=== PATIENT | female | born 1990 | race African-American/Black ===

== ENCOUNTER 2024-12-30 13:33 | Emergency (ER) | payer SELFPAY ==
[~2024-12-30] VITALS: Ht 172.7 cm; Wt 69.0 kg
[2024-12-30 13:42] VITALS: O2SAT 97
[2024-12-30 14:55] LABS: BASOPHILS % 0.5 % (0.0-2.0); EOSINOPHILS % 1.1 % (0.0-5.0); HEMATOCRIT. 38.1 % (36.0-48.0); HEMOGLOBIN. 12.6 g/dL (12.0-16.0); LYMPHOCYTES % 20.3 % (20.0-50.0); MEAN PLATELET VOLUME 7.3 fl (7.4-10.4); MONOCYTES % 6.0 % (2.0-8.0); NEUTROPHILS % 72.1 % (40.0-76.0); PLATELET 214 x1000/uL (130-400); RED BLOOD CELL COUNT 4.28 mill/uL (4.2-5.4); RED CELL DISTRIBUTION WIDTH 14.0 % (11.6-14.6)
[2024-12-30 15:12] LABS: CREATININE 0.9 mg/dL (0.6-1.0); ETHANOL BLOOD < 10 mg/dL (<10); UREA NITROGEN BLOOD 12 mg/dL (9-23)
[2024-12-30 17:57] LABS: HCG SCREEN NEGATIVE
[2024-12-30 18:00] VITALS: BP 133/83; PULSE 85; RESP 16; TEMP 36.8; O2SAT 98
[2024-12-30] MEDS: LEVETIRACETAM 500MG TABLET PO ONE (18:00)
== END 2024-12-30 18:25 | disposition home or self-care (01) ==
LOC: EDBD 13:33 → ER 13:33
DX: R56.9 Unspecified convulsions (principal); F32.A Depression, unspecified; Z59.00 Homelessness unspecified
CPT/HCPCS: 36415; 80048; 80320; 84703; 85025; 93005; 99284; G0480